=== PATIENT | female | born 1955 | race Caucasian/White ===

== ENCOUNTER → 2021-05-05 | Outpatient (CLI) | payer BC ==
[~2021-05-05] MED LIST: ABAC300; ASCO500; CRANBERRY CONC1 EACH; Cipro500 MG PO; Citrucel500 MG; Dyazide 37.5-21 EACH; ESTR2; ESTR2 PO; FEXO60; FEXPSEER PO; Flagyl500 MG PO; Flovent Diskus50 MCG; Hair, Skin & N1 EACH; Imitrex100 MG; MULTI VITAMIN1 EACH PO; PROACE100 PO; PROBIOTIC1 EAC1; Percocet 5-3251 EACH PO; Singulair10 MG PO; TRIA50 PO; VITAMIN D32000 UNIT; Zofran Odt4 MG SL
== END | disposition home or self-care (01) ==
LOC: LAB SHORT 11:30 → LAB 11:30
DX: N30.00 Acute cystitis without hematuria (principal)
CPT/HCPCS: 87077; 87086; 87186

== ENCOUNTER 2023-12-20 07:41 | Day surgery (SDC) | payer MEDICARE, OTHER ==
[~2023-12-20] VITALS: Ht 160 cm; Wt 80.6 kg
[2023-12-20] MEDS ORDERED: MONT10T (07:54)
[2023-12-20] MEDS ORDERED: ALLEGRA ALLERG180 MG (07:54)
[2023-12-20] MEDS ORDERED: FIBERWELL2.5 GM (07:56)
[2023-12-20] MEDS ORDERED: PSYLLIUM HUSK (07:58)
[2023-12-20] MEDS ORDERED: NEURIVA (07:58)
[2023-12-20] MEDS ORDERED: HAIR, SKIN AND1 EAC3 (07:58)
[2023-12-20] MEDS ORDERED: propofoL 50 ML IV ONE (08:09)
[2023-12-20] MEDS ORDERED: Lactated Ringer's 1,000 ML IV ONE ×2 (08:09→08:33)
[2023-12-20 09:21] VITALS: BP 142/73
== END 2023-12-20 09:30 | disposition home or self-care (01) ==
LOC: ORSCSDS 07:41
PROVIDERS: Surgery
PROC: 0DJD8ZZ Inspection of Lower Intestinal Tract, Via Natural or Artificial Opening Endoscopic (ICD-10-PCS; principal; 2023-12-20 08:45)
DX: Z12.11 Encounter for screening for malignant neoplasm of colon (principal); Z86.010 Personal history of colon polyps; K57.30 Diverticulosis of large intestine without perforation or abscess without bleeding; K64.8 Other hemorrhoids; Z79.899 Other long term (current) drug therapy
CPT/HCPCS: J2704; J7120

== ENCOUNTER → 2025-01-08 | Outpatient (CLI) | payer MEDICARE ==
[~2025-01-08] MED LIST changes: +ALLEGRA ALLERG180 MG; +FIBERWELL2.5 GM; +HAIR, SKIN AND1 EAC3; +MONT10T; +NEURIVA; +PSYLLIUM HUSK
[2025-01-08 15:18] LABS: Alanine Aminotransfer (ALT/SGP 22 U/L (12-78); Albumin, Blood 3.7 g/dL (3.4-5.0); Albumin/Globulin Ratio 1.4 (0.8-1.8); Anion Gap 4 mmol/L (3-11); Aspartate Aminotrans (AST/SGOT 18 U/L (12-37); Bilirubin, Total 1.1 mg/dL (0.1-1.0); Blood Urea Nitrogen 17 mg/dL (8-24); CHOL/HDL RATIO 3.9; CO2, Blood 31 mmol/L (21-32); Calcium, Blood 9.5 mg/dL (8.5-10.1); Chloride, Blood 107 mmol/L (98-108); Cholesterol 225 mg/dL (50-200); Creatinine, Blood 0.71 mg/dL (0.40-1.00); Globulin, Blood 2.7 g/dL (2.2-4.0); Glucose, Blood 82 mg/dL (70-99); HDL Cholesterol 57 mg/dL (>39); LDL/HDL RATIO 2.7; Low Density Lipoprotein Chol 152 mg/dL (0-110); Potassium, Blood 3.0 mmol/L (3.5-5.5); Sodium, Blood 139 mmol/L (136-145); Total Protein, Blood 6.4 g/dL (6.4-8.2); Triglycerides 82 mg/dL (30-160); Very Low Density Lipoprot Chol 16 mg/dL (6-32)
== END | disposition home or self-care (01) ==
LOC: LAB SHORT 14:23 → LAB 14:23
PROVIDERS: Hospitalist
DX: I10 Essential (primary) hypertension (principal)
CPT/HCPCS: 80053; 80061